=== PATIENT | female | born 1945 | race Caucasian/White ===

== ENCOUNTER → 2018-06-20 | Outpatient (CLI) | payer MEDICARE | END | disposition home or self-care (01) | LOC: PCVCCLINIC 11:17 | PROVIDERS: ATTEND Internal Medicine Cardiovascular Disease | DX: R07.9 Chest pain, unspecified (principal); R94.31 Abnormal electrocardiogram [ECG] [EKG]; R06.02 Shortness of breath; E78.5 Hyperlipidemia, unspecified; R09.89 Other specified symptoms and signs involving the circulatory and respiratory systems; R73.03 Prediabetes; I45.10 Unspecified right bundle-branch block; Z91.041 Radiographic dye allergy status; Z87.891 Personal history of nicotine dependence; Z79.82 Long term (current) use of aspirin; Z79.84 Long term (current) use of oral hypoglycemic drugs; Z79.899 Other long term (current) drug therapy | CPT/HCPCS: 36415; 80061; 93005; G0463 ==

== ENCOUNTER → 2018-07-09 | Outpatient (CLI) | payer MEDICARE ==
--- NOTE | 2018-07-09 16:47 | PCVCIMAG ---
EXAM: ABDOMINAL ULTRASOUND COMPLETE INDICATION: Low-density hepatic lesions seen on coronary calcium scoring CT incidentally. FINDINGS: Gallbladder: No gallstones. No wall thickening or abnormal pericholecystic fluid. Liver: Upper limits of normal in size measuring maximum length of 21 cm. Several benign cysts seen in the superior liver the largest measuring up to 3.3 cm. These would correspond to the low-density lesions seen on recent CT examination. Bile ducts: No intra or extra hepatic bile duct dilatation. The common bile duct measures 2.3 mm. Pancreas: Unremarkable where seen. Spleen: Normal in size measuring 11.8 cm in greatest dimension. No focal masses. Right kidney: No hydronephrosis. Length measures 12.2 cm. Left kidney: No hydronephrosis. Length measures 1.6 cm. Inferior vena cava: Normal in size where seen. Aorta: Ectasia of the infrarenal abdominal aorta measuring up to 2.9 cm. IMPRESSION: 1. Several benign cysts in the superior liver correspond to the low-density lesion seen on recent coronary CT. 2. Ectasia infrarenal abdominal aorta measuring up to 2.9 cm. Interval follow-up is suggested. LOC:[id number]
--- NOTE | 2018-07-09 18:04 | PCVCIMAG ---
APPROVED REPORT Study performed: 07/09/2018 15:32:47 Exam: Stress Echocardiogram Indication: Hyperlipidemia, Hypertension, Patient Location: Echo lab Stress Nurse: Zuleyka Thompson RN Status: routine Ht: 6 ft 3 in HR: 74 bpm BP: 140/100 mmHg Rhythm: NSR Medical History Medical History: Hyperlipidemia, HTN, Pre diabetes, Dyspnea Procedure The patient underwent an Exercise Stress Test using the Phong Protocol. Blood pressure, heart rate, and EKG were monitored. An Echocardiogram was performed by microbiological laboratory technician in four stages in quad fashion. At peak stress, four selected images were obtained and placed side by side with resting images for comparison. Stress Test Details Stress Test: Exercise stress testing was performed using a Phong protocol. HR Resting HR: 74 bpmMax Heart Rate (APMHR): 146 bpm Max HR Achieved: 148 bpmTarget HR (85% APMHR): 124 bpm % of APMHR: 101 Recovery HR: 82 bpm HR response to stress: Normal HR response to stress BP Resting BP: 140/100 mmHg Max BP: 176/86 mmHg Recovery BP: 176/86 mmHg BP response to stress: Normal blood pressure response to stress. ECG Resting ECG: Sinus Rhythm, RBBB Stress ECG: Sinus Rhythm, RBBB Recovery ECG: Sinus Rhythm, RBBB Clinical Reason for Termination: Maximal effort Exercise duration: 5 min 05 sec Highest Stage Achieved: Stage 2: 2.5 mph at 12% grade. Exercise capacity: 7.00 METs Overall Exercise Capacity for Age: Poor Pre-Stress Echo The resting Echocardiogram showed normal left ventricular contractility with an estimated Ejection Fraction of about >55%. Normal wall motion in all segments on baseline images. Post-Stress Echo The stress Echocardiogram showed normal left ventricular contractility with an estimated Ejection Fraction of about 55-60%. Normal augmentation of wall motion in all segments on post stress images. Clinical No clinical or ECG evidence for ischemia. Conclusion Clinical Response: Non-ischemic Exercise Capacity: Below Average Stress ECG Response: Non-ischemic Stress Echo Images: Non-ischemic The left ventricle is normal in size and wall thickness in both the rest and stress images. Other Information Study Quality: Technically Difficult <Conclusion> The left ventricle is normal in size and wall thickness in both the rest and stress images.
== END | disposition home or self-care (01) ==
LOC: PCVCIMAG 14:24
PROVIDERS: ATTEND Internal Medicine Cardiovascular Disease
DX: I65.23 Occlusion and stenosis of bilateral carotid arteries (principal); I10 Essential (primary) hypertension; I77.811 Abdominal aortic ectasia; K76.89 Other specified diseases of liver; R06.02 Shortness of breath; E78.5 Hyperlipidemia, unspecified; R09.89 Other specified symptoms and signs involving the circulatory and respiratory systems
CPT/HCPCS: 76700; 93325; 93351; 93880

== ENCOUNTER → 2019-01-21 | Outpatient (CLI) | payer MEDICARE | END | disposition home or self-care (01) | LOC: PCVCCLINIC 13:00 | PROVIDERS: ATTEND Internal Medicine Cardiovascular Disease | DX: I10 Essential (primary) hypertension (principal); E78.00 Pure hypercholesterolemia, unspecified; E11.9 Type 2 diabetes mellitus without complications; E78.5 Hyperlipidemia, unspecified; Z79.82 Long term (current) use of aspirin; Z79.84 Long term (current) use of oral hypoglycemic drugs | CPT/HCPCS: 36415; 80061; 93005; G0463 ==